=== PATIENT | female | born 1995 | race Two or more races ===

== ENCOUNTER 2020-08-05 10:10 | Inpatient (IN) | payer BC ==
[2020-08-05] MEDS: Lactated Ringers 1,000 ML IV SCH ×2 (10:45→11:33)
[2020-08-05] MEDS ORDERED: ceFAZolin 2 GM in Premix Bag 1 BAG IV ONE (10:48)
[2020-08-05] MEDS ORDERED: Citric Acid/Sodium Citrate Solution 30 ML Cup PO ONE (10:48)
[2020-08-05] MEDS ORDERED: Sodium Chloride 0.9% 10 ML SDV IV PRN (10:48)
[2020-08-05] MEDS ORDERED: Sodium Chloride 0.9% 10 ML Syringe FLUSH PRN (10:48)
[2020-08-05] MEDS ORDERED: Sodium Chloride 0.9% 2.5 ML Syringe FLUSH PRN (10:48)
[2020-08-05] MEDS ORDERED: Oxytocin/0.9 % Sodium Chloride 30 UNIT/500 ML BAG IV SCH (11:00)
[2020-08-05] MEDS ORDERED: fentaNYL 100 MCG/2 ML SDV IVPUSH PRN (11:24)
[2020-08-05] MEDS ORDERED: Acetaminophen/oxyCODONE 325-5 MG Tab PO PRN ×2 (11:24→14:01)
[2020-08-05] MEDS ORDERED: Nalbuphine 10 MG/1 ML Vial IVPUSH PRN (11:24)
--- NOTE | 2020-08-05 11:24 | PCM.PREANE ---
Preanesthetic Assessment - Anesthesia/Transfusion/Family Hx Anesthesia History: Prior Anesthesia Without Reaction Family History of Anesthesia Reaction: No Transfusion History: No Prior Transfusion(s) - Review of Systems General: No Symptoms Pulmonary: No Symptoms Cardiovascular: No Symptoms Gastrointestinal: No Symptoms Neurological: No Symptoms Other: Reports: None - Physical Assessment NPO Status Date: 08/04/20 Height: 5 ft Weight: 68.039 kg ASA Class: 2 Mental Status: Alert & Oriented x3 Airway Class: Mallampati = 2 Dentition: Reports: Normal Dentition ROM/Head Extension: Full Lungs: Clear to Auscultation, Normal Respiratory Effort Cardiovascular: Regular Rate, Regular Rhythm - Lab Values: Laboratory Last Values WBC 11.48 K/uL (4.0-11.0) H 08/04/20 16:42 RBC 3.97 M/uL (4.30-5.90) L 12 16:42 Hgb 10.9 g/dL (12.0-16.0) L 08/04/20 16:42 Hct 33.6 % (36.0-46.0) L 08/04/20 16:42 MCV 84.6 fL (80.0-98.0) 08/04/20 16:42 MCH 27.5 pg (27.0-32.0) 08/04/20 16:42 MCHC 32.4 g/dL (31.0-37.0) 08/04/20 16:42 RDW Std Deviation 40.0 fl (28.0-62.0) 08/04/20 16:42 RDW Coeff of Zane 13 % (11.0-15.0) 08/04/20 16:42 Plt Count 228 K/uL (150-400) 08/04/20 16:42 MPV 11.20 fL (7.40-12.00) 08/04/20 16:42 Nucleated RBC % 0.0 /100WBC 08/04/20 16:42 Nucleated RBCs # 0 K/uL 08/04/20 16:42 SARS-CoV-2 RNA (GARRY) NEGATIVE (NEGATIVE) 08/04/20 16:42 Blood Type A POSITIVE 08/04/20 16:42 Antibody Screen NEGATIVE 08/04/20 16:42 Crossmatch See Detail 08/04/20 16:42 - Allergies Allergies/Adverse Reactions: Allergies Allergy/AdvReac Type Severity Reaction Status Date / Time No Known Allergies Allergy Verified 08/02/20 08:20 - Blood Blood Available: Yes - Anesthesia Plan Pre-Op Medication Ordered: Antacids - Acknowledgements Anesthesia Type Planned: Spinal Pt an Appropriate Candidate for the Planned Anesthesia: Yes Alternatives and Risks of Anesthesia Discussed w Pt/Guardian: Yes Pt/Guardian Understands and Agrees with Anesthesia Plan: Yes Additional Comments: repeat elective Csection for placenta previa, no gest problems, pmh-neg, no meds other than multivits. Lasr was 8 yrs ago, Had epidural for labor, then GA for Csection. PLAN: spinal with intrathecal duramorph PreAnesthesia Questionnaire HEENT History: Reports: None Cardiovascular History: Reports: None Respiratory History: Reports: None Gastrointestinal History: Reports: Other (See Below) Other Gastrointestinal History: occasional heartburn during Genitourinary History: Reports: None CARDIAC CATH TECHNOLOGIST History: Reports: Musculoskeletal History: Reports: None Neurological History: Reports: None Psychiatric History: Reports: Anxiety Endocrine/Metabolic History: Reports: None Hematologic History: Reports: None Immunologic History: Reports: None Oncologic (Cancer) History: Reports: None Dermatologic History: Reports: None - Past Surgical History Head Surgeries/Procedures: Reports: None HEENT Surgical History: Reports: None Cardiovascular Surgical History: Reports: None Respiratory Surgical History: Reports: None GI Surgical History: Reports: None Female Surgical History: Reports: Section Endocrine Surgical History: Reports: None Neurological Surgical History: Reports: None Musculoskeletal Surgical History: Reports: None Oncologic Surgical History: Reports: None Dermatological Surgical History: Reports: None - SUBSTANCE USE Tobacco Use Status *Q: Former Tobacco User Tobacco Use Within Last Twelve Months: Cigarettes - HOME MEDS Home Medications: Home Meds Pnv No.95/Ferrous Fum/Folic AC [ Vitamin Tablet] 1 tab PO DAILY 08/02/20 [History] - CURRENT (IN HOUSE) MEDS Current Meds: Current Medications Citric Acid/Sodium Citrate (Bicitra Solution) 30 ml PO ONETIME ONE Stop: 08/05/20 10:49 Lactated Ringer's (Ringers, Lactated) 1,000 mls @ 500 mls/hr IV BOLUS BOBBY Oxytocin/Sodium Chloride (Oxytocin 30 Unit/500 Ml-Ns) 30 unit in 500 mls @ 250 mls/hr IV TITRATE BOBBY Cefazolin Sodium/Dextrose 2 gm (/ Premix) 50 mls @ 100 mls/hr IV ONETIME ONE Stop: 08/05/20 11:17 Sodium Chloride (Saline Flush) 10 ml FLUSH ASDIRECTED PRN PRN Reason: Keep Vein Open Sodium Chloride (Saline Flush) 2.5 ml FLUSH ASDIRECTED PRN PRN Reason: Keep Vein Open Sodium Chloride (Normal Saline) 10 ml IV ASDIRECTED PRN PRN Reason: IV Use
[2020-08-05] MEDS ORDERED: Octyl 2-Cyanoacrylate 1 Tube ONE (11:57)
[2020-08-05] MEDS ORDERED: Ondansetron 4 MG/2 ML SDV ONE (12:32)
[2020-08-05] MEDS ORDERED: Morphine PF 10 MG/10 ML SDV ONE (12:32)
[2020-08-05] MEDS ORDERED: Oxytocin 10 Units/1 ML SDV ONE (12:32)
[2020-08-05] MEDS ORDERED: fentaNYL 100 MCG/2 ML SDV ONE (12:32)
[2020-08-05] MEDS ORDERED: ceFAZolin/Dextrose,Iso-Osmotic 2 GM/50 ML Duplex Bag IV ONE (12:49)
--- NOTE | 2020-08-05 13:59 | PCM.OPNOTE ---
- General Post-Op/Procedure Note Date of Surgery/Procedure: 08/05/20 Operative Procedure(s): repeat low transverse Findings: complete placenta previa, liveborn male 9/9 weight 2860 grams. Normal pelvis. Pre Op Diagnosis: 36 5/7 weeks, complete placenta previa, previous Post-Op Diagnosis: Same Anesthesia Technique: Spinal Primary Surgeon: Tavia Seth Anesthesia Provider: Stephen Araujo Pathology: none Fluid Replacement, Intraop: 900 Output, Urine Amount: 400 EBL in mLs: 500 Complications: None Known Condition: Good
[2020-08-05] MEDS ORDERED: Lanolin 100% Cream 7 GM Tube TOP PRN (14:01)
[2020-08-05] MEDS ORDERED: Ondansetron 4 MG/2 ML SDV IVPUSH PRN (14:01)
[2020-08-05] MEDS ORDERED: Oxytocin 10 Units/1 ML SDV IM PRN (14:01)
[2020-08-05] MEDS ORDERED: Misoprostol 200 MCG Tab RECTAL PRN (14:01)
[2020-08-05] MEDS ORDERED: Bisacodyl 10 MG Supp RECTAL PRN (14:01)
[2020-08-05] MEDS ORDERED: Tranexamic Acid 1,000 MG in Sodium Chloride 0.9% 100 ML IV PRN (14:01)
[2020-08-05] MEDS ORDERED: diphenhydrAMINE 50 MG/ML SDV IVPUSH PRN (14:01)
[2020-08-05] MEDS ORDERED: Methylergonovine 0.2 MG/1 ML Amp IM PRN (14:01)
[2020-08-05] MEDS ORDERED: Oxytocin/Lactated Ringers 30 UNIT/500 ML BAG IV SCH (14:15)
[2020-08-05] MEDS ORDERED: Lactated Ringers 1,000 ML IV SCH (14:15)
[2020-08-05] MEDS: Ketorolac 30 MG/ML SDV IVPUSH SCH ×2 (14:27→20:46)
--- NOTE | 2020-08-05 14:32 | PCM.POSTAN ---
POST ANESTHESIA ASSESSMENT - MENTAL STATUS Mental Status: Alert, Oriented - VITAL SIGNS Vital Signs: Last Vital Signs Temp 36.4 C 08/05/20 13:31 Pulse 91 08/05/20 14:08 Resp 20 08/05/20 14:08 BP 103/51 L 08/05/20 14:08 Pulse Ox 98 08/05/20 14:08 - RESPIRATORY Respiratory Status: Respiratory Rate WNL, Airway Patent, O2 Saturation Stable - CARDIOVASCULAR CV Status: Pulse Rate WNL, Blood Pressure Stable - GASTROINTESTINAL GI Status: No Symptoms - PAIN Pain Score: 2 Free Text/Narrative:: Reports satisfactory pain control. Dermatome level regressing well, currently at L1. - POST OP HYDRATION Hydration Status: Adequate & Stable
[2020-08-05] MEDS: Docusate Sodium 100 MG Cap PO SCH (20:46)
[2020-08-06] MEDS: Ketorolac 30 MG/ML SDV IVPUSH SCH ×3 (02:45→15:21)
[2020-08-06] MEDS: Docusate Sodium 100 MG Cap PO SCH ×2 (08:57→21:17)
--- NOTE | 2020-08-06 10:05 | PCM.PNPP ---
- General Info Date of Service: 08/06/20 Functional Status: Reports: Pain Controlled, Tolerating Diet, Ambulating, Urinating - Review of Systems General: Reports: No Symptoms HEENT: Reports: No Symptoms Pulmonary: Reports: No Symptoms Cardiovascular: Reports: No Symptoms Gastrointestinal: Reports: No Symptoms Genitourinary: Reports: No Symptoms Musculoskeletal: Reports: No Symptoms Skin: Reports: No Symptoms Neurological: Reports: No Symptoms Psychiatric: Reports: No Symptoms - General Info Date of Service: 08/06/20 - Patient Data Vital Signs - Most Recent: Last Vital Signs Temp 36.5 C 08/06/20 08:45 Pulse 75 08/06/20 08:45 Resp 17 08/06/20 08:45 BP 103/65 08/06/20 08:45 Pulse Ox 96 08/06/20 08:45 Weight - Most Recent: 70.307 kg I&O - Last 24 Hours: Intake & Output 08/05/20 08/06/20 08/06/20 22:59 06:59 14:59 Output Total 850 1400 Balance -850 -1400 Lab Results - Last 24 Hours: Laboratory Results - last 24 hr 08/05/20 08/06/20 Range/Units 13:01 06:20 Hgb 8.0 L (12.0-16.0) g/dL Hct 24.8 L (36.0-46.0) % Cord ABG pH 7.314 (7.18-7.38) Cord ABG Base Excess -3 (-10--2) Cord VBG pH 7.382 (7.25-7.45) Cord VBG Base Excess -3 (-10--2) Med Orders - Current: Current Medications Bisacodyl (Dulcolax) 10 mg RECTAL ONETIME PRN PRN Reason: Constipation Diphenhydramine HCl (Benadryl) 25 mg IVPUSH Q6H PRN PRN Reason: Itching or Nausea Docusate Sodium (Colace) 100 mg PO BID BOBBY Last Admin: 08/06/20 08:57 Dose: 100 mg Documented by: Emollient Ointment (Lansinoh Hpa) 0 gm TOP ASDIRECTED PRN PRN Reason: Sore Nipples Fentanyl (Sublimaze) 50 mcg IVPUSH Q5M PRN PRN Reason: Pain (severe 7-10) Stop: 08/06/20 11:24 Lactated Ringer's (Ringers, Lactated) 1,000 mls @ 125 mls/hr IV ASDIRECTED [facility] Last Admin: 08/05/20 14:25 Dose: 125 mls/hr Documented by: Oxytocin/Lactated Ringer's (Pitocin In Lr 30 Units/500 Ml) 30 unit in 500 mls @ 999 mls/hr IV TITRATE BOBBY; Protocol Tranexamic Acid 1,000 mg/ (Sodium Chloride) 110 mls @ 660 mls/hr IV ONETIME PRN PRN Reason: Bleeding Ibuprofen (Motrin) 800 mg PO Q8H PRN PRN Reason: mild pain or fever Ketorolac Tromethamine (Toradol) 30 mg IVPUSH Q6H [facility] Stop: 08/06/20 14:16 Last Admin: 08/06/20 08:56 Dose: 30 mg Documented by: Methylergonovine Maleate (Methergine) 0.2 mg IM ONETIME PRN PRN Reason: Excessive Vaginal Bleeding Misoprostol (Cytotec) 1,000 mcg RECTAL ONETIME PRN PRN Reason: excessive bleeding Nalbuphine HCl (Nubain) 2.5 mg IVPUSH Q3H PRN PRN Reason: Pruritis Stop: 08/06/20 11:25 Ondansetron HCl (Zofran) 4 mg IVPUSH Q4H PRN PRN Reason: Nausea/Vomiting Oxycodone/Acetaminophen (Percocet 325-5 Mg) 1 tab PO ONETIME PRN PRN Reason: Pain (moderate 4-6) Oxycodone/Acetaminophen (Percocet 325-5 Mg) 1 tab PO Q4H PRN PRN Reason: Pain (moderate 4-6) Oxycodone/Acetaminophen (Percocet 325-5 Mg) 2 tab PO Q4H PRN PRN Reason: Pain (moderate 4-6) Oxytocin (Pitocin) 10 unit IM ASDIRECTED PRN PRN Reason: Excessive Vaginal Bleeding Discontinued Medications Cefazolin Sodium/Dextrose (Ancef) Confirm Administered Dose 2 gm IV .STK-MED ONE Stop: 08/05/20 12:50 Citric Acid/Sodium Citrate (Bicitra Solution) 30 ml PO ONETIME ONE Stop: 08/05/20 10:49 Fentanyl (Sublimaze) Confirm Administered Dose 100 mcg .ROUTE .STK-MED ONE Stop: 08/05/20 12:33 Lactated Ringer's (Ringers, Lactated) 1,000 mls @ 500 mls/hr IV BOLUS BOBBY Last Admin: 08/05/20 11:33 Dose: 500 mls/hr Documented by: Oxytocin/Sodium Chloride (Oxytocin 30 Unit/500 Ml-Ns) 30 unit in 500 mls @ 250 mls/hr IV TITRATE BOBBY Cefazolin Sodium/Dextrose 2 gm (/ Premix) 50 mls @ 100 mls/hr IV ONETIME ONE Stop: 08/05/20 11:17 Morphine Sulfate (Duramorph Pf) Confirm Administered Dose 10 mg .ROUTE .STK-MED ONE Stop: 08/05/20 12:33 Octyl Cyanoacrylate (Dermabond Advance) Confirm Administered Dose 1 applic .ROUTE .STK-MED ONE Stop: 08/05/20 11:58 Ondansetron HCl (Zofran) Confirm Administered Dose 4 mg .ROUTE .STK-MED ONE Stop: 08/05/20 12:33 Oxytocin (Pitocin) Confirm Administered Dose 30 unit .ROUTE .STK-MED ONE Stop: 08/05/20 12:33 Sodium Chloride (Saline Flush) 10 ml FLUSH ASDIRECTED PRN PRN Reason: Keep Vein Open Sodium Chloride (Saline Flush) 2.5 ml FLUSH ASDIRECTED PRN PRN Reason: Keep Vein Open Sodium Chloride (Normal Saline) 10 ml IV ASDIRECTED PRN PRN Reason: IV Use - Interaction Disposition, : in Room with Family Infant Interaction: Holding Infant Infant Feeding: Breastfed Infant; Nursed Well Support Person: Significant Other - Recovery Exam Fundal Tone: Firm Fundal Level: 1 Fingerbreadths Below Umbilicus Fundal Placement: Midline Lochia Amount: Scant, Small Lochia Color: Rubra/Red Perineum Description: Intact, Minimal Bruising/Swelling Episiotomy/Laceration: None Bladder Status: Voiding Urinary Elimination: Voided - Exam General: Alert, Oriented Lungs: Normal Respiratory Effort GI/Abdominal Exam: Soft, Non-Tender, No Distention Extremities: Non-Tender, No Pedal Edema Skin: Warm, Dry, Intact Wound/Incisions: Dressing Dry and Intact - Problem List Review Problem List Initiated/Reviewed/Updated: Yes - My Orders Last 24 Hours: My Active Orders 08/05/20 14:01 Patient Status [ADT] Routine Ambulate [RC] PER UNIT ROUTINE Communication Order [RC] PER UNIT ROUTINE Communication Order [RC] Per Unit Routine May Shower [RC] ASDIRECTED Notify Provider Vital Signs [RC] ASDIRECTED RT Incentive Spirometry [RC] Q2HWA Acetaminophen/oxyCODONE [Percocet 325-5 MG] 1 tab PO Q4H PRN Acetaminophen/oxyCODONE [Percocet 325-5 MG] 2 tab PO Q4H PRN Lanolin [Lansinoh HPA] See Dose Instructions TOP ASDIRECTED PRN Methylergonovine [Methergine] 0.2 mg IM ONETIME PRN Ondansetron [Zofran] 4 mg IVPUSH Q4H PRN Oxytocin [Pitocin] 10 unit IM ASDIRECTED PRN Tranexamic Acid [Cyklokapron] 1,000 mg Sodium Chloride 0.9% [Normal Saline] 100 ml IV ONETIME bisacodyL [Dulcolax] 10 mg RECTAL ONETIME PRN diphenhydrAMINE [Benadryl] 25 mg IVPUSH Q6H PRN miSOPROStoL [Cytotec] 1,000 mcg RECTAL ONETIME PRN Abdominal Binder [OM.PC] Urgent Assess Lochia [WOMSER] Per Unit Routine Assess Uterine Involution [WOMSER] Per Unit Routine Breast Pump [WOMSER] Per Unit Routine Sequential Compression Device [OM.PC] Per Unit Routine Resuscitation Status Routine 08/05/20 14:02 Peripheral IV Discontinue [OM.PC] Routine 08/05/20 14:03 Antiembolic Devices [RC] PER UNIT ROUTINE 08/05/20 14:05 Notify Provider Intake and Out [RC] ASDIRECTED 08/05/20 14:15 Ketorolac [Toradol] 30 mg IVPUSH Q6H Lactated Ringers [Ringers, Lactated] 1,000 ml IV ASDIRECTED Oxytocin/Lactated Ringers [Pitocin in LR 30 Units/500 ML] 30 unit in 500 ml IV TITRATE 08/05/20 Dinner Regular Diet [DIET] 08/05/20 21:00 Docusate Sodium [Colace] 100 mg PO BID 08/06/20 20:16 Ibuprofen [Motrin] 800 mg PO Q8H PRN - Assessment Assessment:: POD#1 after repeat low transvserse due to complete placenta previa. Pain is well controlled, and she is well. She was anemic on admission and had appropriate drop in Hgb, continue with with 27 mg iron on discharge. Continue postop care at this time. Anticipate discharge in am. - Plan Plan:: Continue postoperative care, dressing off, IV out, shower and ambulate.
--- NOTE | 2020-08-06 12:10 | PCM48HPAN ---
Post Anesthesia Note - EVALUATION WITHIN 48HRS OF ANESTHETIC Vital Signs in Normal Range: Yes Patient Participated in Evaluation: Yes Respiratory Function Stable: Yes Airway Patent: Yes Cardiovascular Function Stable: Yes Hydration Status Stable: Yes (Taking PO well) Pain Control Satisfactory: Yes (Denies pain) Nausea and Vomiting Control Satisfactory: Yes Mental Status Recovered: Yes Vital Signs: Last Vital Signs Temp 36.5 C 08/06/20 08:45 Pulse 101 H 08/06/20 11:00 Resp 19 08/06/20 11:00 BP 103/65 08/06/20 08:45 Pulse Ox 94 L 08/06/20 11:00 - COMMENTS/OBSERVATIONS Free Text/Narrative:: Ambulating without difficulty, full return of strength and sensation to BLE.
[2020-08-06] MEDS ORDERED: Ibuprofen 800 MG Tab PO PRN (20:16)
[2020-08-06] MEDS: Acetaminophen/oxyCODONE 325-5 MG Tab PO PRN (21:18)
[2020-08-07] MEDS: Docusate Sodium 100 MG Cap PO SCH (09:03)
[2020-08-07] MEDS: Acetaminophen/oxyCODONE 325-5 MG Tab PO PRN ×2 (09:04→15:30)
--- NOTE | 2020-08-07 13:11 | PCM.PNPP ---
- General Info Date of Service: 08/07/20 Functional Status: Reports: Pain Controlled (take oral pain medications.), Tolerating Diet, Ambulating, Urinating - Review of Systems General: Reports: No Symptoms HEENT: Reports: No Symptoms Pulmonary: Reports: No Symptoms Cardiovascular: Reports: No Symptoms Gastrointestinal: Reports: No Symptoms Genitourinary: Reports: No Symptoms Musculoskeletal: Reports: No Symptoms Skin: Reports: No Symptoms Neurological: Reports: No Symptoms Psychiatric: Reports: No Symptoms - Patient Data Vital Signs - Most Recent: Last Vital Signs Temp 36.2 C 08/07/20 12:03 Pulse 82 08/07/20 12:03 Resp 16 08/07/20 12:03 BP 110/67 08/07/20 12:03 Pulse Ox 98 08/07/20 12:03 Weight - Most Recent: 70.307 kg Med Orders - Current: Current Medications Bisacodyl (Dulcolax) 10 mg RECTAL ONETIME PRN PRN Reason: Constipation Diphenhydramine HCl (Benadryl) 25 mg IVPUSH Q6H PRN PRN Reason: Itching or Nausea Docusate Sodium (Colace) 100 mg PO BID [facility] Last Admin: 08/07/20 09:03 Dose: 100 mg Documented by: Emollient Ointment (Lansinoh Hpa) 0 gm TOP ASDIRECTED PRN PRN Reason: Sore Nipples Lactated Ringer's (Ringers, Lactated) 1,000 mls @ 125 mls/hr IV ASDIRECTED [facility] Last Admin: 08/05/20 14:25 Dose: 125 mls/hr Documented by: Oxytocin/Lactated Ringer's (Pitocin In Lr 30 Units/500 Ml) 30 unit in 500 mls @ 999 mls/hr IV TITRATE [facility]; Protocol Tranexamic Acid 1,000 mg/ (Sodium Chloride) 110 mls @ 660 mls/hr IV ONETIME PRN PRN Reason: Bleeding Ibuprofen (Motrin) 800 mg PO Q8H PRN PRN Reason: mild pain or fever Last Admin: 08/07/20 09:03 Dose: 800 mg Documented by: Methylergonovine Maleate (Methergine) 0.2 mg IM ONETIME PRN PRN Reason: Excessive Vaginal Bleeding Misoprostol (Cytotec) 1,000 mcg RECTAL ONETIME PRN PRN Reason: excessive bleeding Ondansetron HCl (Zofran) 4 mg IVPUSH Q4H PRN PRN Reason: Nausea/Vomiting Oxycodone/Acetaminophen (Percocet 325-5 Mg) 1 tab PO ONETIME PRN PRN Reason: Pain (moderate 4-6) Last Admin: 08/07/20 03:26 Dose: 1 tab Documented by: Oxycodone/Acetaminophen (Percocet 325-5 Mg) 1 tab PO Q4H PRN PRN Reason: Pain (moderate 4-6) Last Admin: 08/07/20 09:04 Dose: 1 tab Documented by: Oxycodone/Acetaminophen (Percocet 325-5 Mg) 2 tab PO Q4H PRN PRN Reason: Pain (moderate 4-6) Oxytocin (Pitocin) 10 unit IM ASDIRECTED PRN PRN Reason: Excessive Vaginal Bleeding Discontinued Medications Cefazolin Sodium/Dextrose (Ancef) Confirm Administered Dose 2 gm IV .STK-MED ONE Stop: 08/05/20 12:50 Citric Acid/Sodium Citrate (Bicitra Solution) 30 ml PO ONETIME ONE Stop: 08/05/20 10:49 Fentanyl (Sublimaze) 50 mcg IVPUSH Q5M PRN PRN Reason: Pain (severe 7-10) Stop: 08/06/20 11:24 Fentanyl (Sublimaze) Confirm Administered Dose 100 mcg .ROUTE .STK-MED ONE Stop: 08/05/20 12:33 Lactated Ringer's (Ringers, Lactated) 1,000 mls @ 500 mls/hr IV BOLUS [facility] Last Admin: 08/05/20 11:33 Dose: 500 mls/hr Documented by: Oxytocin/Sodium Chloride (Oxytocin 30 Unit/500 Ml-Ns) 30 unit in 500 mls @ 250 mls/hr IV TITRATE BOBBY Cefazolin Sodium/Dextrose 2 gm (/ Premix) 50 mls @ 100 mls/hr IV ONETIME ONE Stop: 08/05/20 11:17 Ketorolac Tromethamine (Toradol) 30 mg IVPUSH Q6H [facility] Stop: 08/06/20 14:16 Last Admin: 08/06/20 15:21 Dose: 30 mg Documented by: Morphine Sulfate (Duramorph Pf) Confirm Administered Dose 10 mg .ROUTE .STK-MED ONE Stop: 08/05/20 12:33 Nalbuphine HCl (Nubain) 2.5 mg IVPUSH Q3H PRN PRN Reason: Pruritis Stop: 08/06/20 11:25 Octyl Cyanoacrylate (Dermabond Advance) Confirm Administered Dose 1 applic .ROUTE .STK-MED ONE Stop: 08/05/20 11:58 Last Admin: 08/06/20 10:09 Dose: Not Given Documented by: Ondansetron HCl (Zofran) Confirm Administered Dose 4 mg .ROUTE .STK-MED ONE Stop: 08/05/20 12:33 Oxytocin (Pitocin) Confirm Administered Dose 30 unit .ROUTE .STK-MED ONE Stop: 08/05/20 12:33 Sodium Chloride (Saline Flush) 10 ml FLUSH ASDIRECTED PRN PRN Reason: Keep Vein Open Sodium Chloride (Saline Flush) 2.5 ml FLUSH ASDIRECTED PRN PRN Reason: Keep Vein Open Sodium Chloride (Normal Saline) 10 ml IV ASDIRECTED PRN PRN Reason: IV Use - Interaction Disposition, : in Room with Family Interaction: Holding Infant Feeding: Breastfed ; Nursed Well Support Person: Significant Other - Recovery Exam Fundal Tone: Firm Fundal Level: 1 Fingerbreadths Below Umbilicus Fundal Placement: Midline Lochia Amount: Scant Lochia Color: Rubra/Red Perineum Description: Intact, Minimal Bruising/Swelling Episiotomy/Laceration: None Bladder Status: Voiding Urinary Elimination: Voided - Exam General: Alert, Oriented Neck: Supple Lungs: Clear to Auscultation, Normal Respiratory Effort Cardiovascular: Regular Rate, Regular Rhythm GI/Abdominal Exam: Normal Bowel Sounds, Soft, Non-Tender, No Distention Extremities: Normal Inspection, Non-Tender, No Pedal Edema Skin: Warm, Dry, Intact Wound/Incisions: Healing Well Neurological: No New Focal Deficit - Problem List & Annotations (1) Complete placenta previa nos or without hemorrhage, third trimester SNOMED Code(s): 5402024, 73286133 Code(s): O44.03 - COMPLETE PLACENTA PREVIA NOS OR WITHOUT HEMOR, THIRD TRI Status: Acute Current Visit: Yes (2) delivery due to maternal disorder, delivered, curr hospitaliz SNOMED Code(s): 356364436 Code(s): O99.892 - OTH DISEASES AND CONDITIONS COMPLICATING CHILDBIRTH Status: Acute Current Visit: Yes (3) Previous delivery affecting , delivered SNOMED Code(s): 111501026, 417374409 Code(s): O34.219 - MATERNAL CARE FOR UNSP TYPE SCAR FROM PREVIOUS DEL Status: Acute Current Visit: Yes - Problem List Review Problem List Initiated/Reviewed/Updated: Yes - My Orders Last 24 Hours: My Active Orders 08/06/20 20:16 Ibuprofen [Motrin] 800 mg PO Q8H PRN 08/07/20 13:09 Ready for Discharge [RC] PER UNIT ROUTINE - Assessment Assessment:: POD#2 after repeat low transvserse due to complete placenta previa. Stable, would like to be discharged to day - Plan Plan:: Discharge instructions reviewed, including continue with iron for at least a month.
--- NOTE | 2020-08-08 07:01 | OR ---
SURGEON: Tavia Seth M.D. DATE OF PROCEDURE: 08/05/2020 PREOPERATIVE DIAGNOSES: A 36-5/7 weeks' gestation, complete placenta previa, previous section. POSTOPERATIVE DIAGNOSES: A 36-5/7 weeks' gestation, complete placenta previa, previous section. PROCEDURE: Repeat low transverse section. PRIMARY SURGEON: Tavia Seth MD ANESTHESIA: Spinal. ESTIMATED BLOOD LOSS: 500 mL. FLUIDS: 900 mL of crystalloid. 400 mL. FINDINGS: Liveborn male, score of 9 and 9, weighing 2860 g. Complete previa was noted. Otherwise, normal-appearing uterus, tubes, and ovaries. COMPLICATIONS: None known. DISPOSITION: Stable to recovery. BRIEF HISTORY: This is a 24-year-old female, G2, P 1-0-0-1. She presents at 36-5/7 weeks' gestation with a known complete posterior placenta previa, having received 2 doses of steroids the last 24 hours prior to this procedure. She is group B strep positive. She presents for early delivery due to complete previa. She has had otherwise uncomplicated care. Risks have been discussed including bleeding; infection; injury to bowel, bladder, blood vessels, ureters, or other organs; risk of thromboembolic event; and risk of anesthesia. Understanding all these risks, she does desire to proceed. Four units of blood have been typed and crossed prior to the procedure. DESCRIPTION OF PROCEDURE: With the patient in the left tilt position, under adequate spinal analgesia, the abdomen was prepped with chlorhexidine and draped in usual fashion for abdominal surgery. SCDs were in place. Ramirez catheter had been placed and an appropriate time-out was held. She had received 2 g of Ancef IV. After documentation of adequate analgesia, the prior cicatrix was excised and an incision was carried through the subcutaneous tissue to the fascia, which was scored transversely in the midline. The fascial incision was extended laterally using curved Norman scissors and elevated from the underlying rectus muscle using sharp and blunt dissection. The rectus muscles were bluntly in the midline. A finger was used to enter the peritoneal cavity. There were no adhesions anteriorly. The incision was extended using the Norman scissors. The Dirk O retractor was placed. The visceral peritoneum over the lower uterine segment was incised to develop an adequate bladder flap. A transverse curvilinear incision was made over the lower uterine segment with a scalpel. A finger was used to enter the amniotic cavity. This was just above and medial to the complete placenta previa. The incision was extended. The placenta was apparent within the incision, but I was able to deliver the head just medial to the posterior right-sided complete previa, and the was bulb suctioned by nose and mouth. After 1 minute, the cord was doubly clamped and cut. The was handed to the nurse in attendance at delivery. The was a liveborn male, score 9 and 9, weighing 2860 g. Cord blood was collected for cord ABGs as well as routine cord blood sampling. The placenta was removed by manual extraction and the uterus was cleaned with a dry laparotomy tape. The cervix was opened with ring forceps. The uterine incision was closed with a running lock suture of 0 Polysorb followed by an imbricating layer of 0 Polysorb. A single [id number] suture was placed in the midline for complete hemostasis. Both tubes and ovaries were inspected and appeared normal. The Dirk O C- section retractor was removed and final inspection revealed the uterine incision to be completely hemostatic. The rectus muscle and peritoneum were loosely approximated in the midline using a running mattress suture of 0 Polysorb. The posterior aspect of the fascia was inspected, any areas of bleeding that were noted were cauterized. The fascial incision was closed with a running suture of 0 Polysorb. Subcutaneous tissue was irrigated and carefully inspected for hemostasis, any areas of bleeding that were noted were cauterized. The skin was closed with a running subcuticular suture of 3-0 Monocryl followed by Dermabond. Final sponge, needle, and instrument counts were reported as correct. There were no known complications. Mother and baby are in LDR in good condition. AYE / CHARMAINE /[id number]
== END 2020-08-07 19:00 | disposition home or self-care (01) | DRG 540 ==
LOC: MW.OB 10:10
PROVIDERS: ADMIT Obstetrics & Gynecology; ATTEND Obstetrics & Gynecology
PROC: 10D00Z1 Extraction of Products of Conception, Low, Open Approach (ICD-10-PCS; principal; 2020-08-05)
DX: O44.03 Complete placenta previa NOS or without hemorrhage, third trimester (principal); O34.211 Maternal care for low transverse scar from previous cesarean delivery; Z37.0 Single live birth; Z20.828 Contact with and (suspected) exposure to other viral communicable diseases; Z3A.36 36 weeks gestation of pregnancy
CPT/HCPCS: 01961; 36415; 59025; 82803; 85014; 85018; 85027; 86850; 86900; 86901; 86920; 86921; 86922; A9270-GY; J0690; J1885; J2270; J2405; J2590; J3010; J7120; U0002

== ENCOUNTER 2024-08-02 18:08 | Emergency (ER) | payer SELFPAY ==
[2024-08-02] MEDS: Sodium Chloride 0.9% 1,000 ML IV STA (19:14)
[2024-08-02] MEDS: Meclizine 25 MG Tab PO STA (19:15)
[2024-08-02 19:32] LABS: BASOPHILS ABSOLUTE AUTO 0.06 K/uL (0.00-0.20); BASOPHILS PERCENT AUTO 0.6 % (0.0-1.0); EOSINOPHILS ABSOLUTE AUTO 0.02 K/uL (0.00-0.45); EOSINOPHILS PERCENT AUTO 0.2 % (0.0-6.0); HEMOGLOBIN 14.5 g/dL (12.0-16.0); IMMATURE GRAN ABSOLUTE AUTO 0.02 K/uL (0.00-0.05); IMMATURE GRAN PERCENT AUTO 0.2 % (0.0-0.4); LYMPHOCYTES ABSOLUTE AUTO 1.11 K/uL (1.00-4.80); LYMPHOCYTES PERCENT AUTO 11.7 % (24.0-44.0); MEAN CORPUSCULAR HEMOGLOBIN 29.3 pg (28.0-32.0); MEAN CORPUSCULAR HGB CONC 34.5 g/dL (32.0-36.0); MEAN CORPUSCULAR VOLUME 84.8 fL (83.0-99.0); MEAN PLATELET VOLUME 10.7 fL (9.4-12.3); MONOCYTES ABSOLUTE AUTO 0.42 K/uL (0.00-0.80); MONOCYTES PERCENT AUTO 4.4 % (0.0-8.0); NEUTROPHILS ABSOLUTE AUTO 7.89 K/uL (1.80-7.70); NEUTROPHILS PERCENT AUTO 82.9 % (41.0-71.0); PLATELET COUNT,PLT 312 K/uL (150-400); RED BLOOD CELL COUNT 4.95 M/uL (4.10-5.30); WHITE BLOOD CELL COUNT,WBC 9.52 K/uL (3.9-11.3)
[2024-08-02 19:59] LABS: A/G RATIO 1.3 (0.9-1.6); ALANINE AMINOTRANSFERASE,ALT 12 IU/L (14-63); ALBUMIN 4.9 g/dL (3.4-5.0); ALKALINE PHOSPHATASE 53 U/L (46-116); ASPARTATE AMNIOTRANSFERASE,AST 15 IU/L (15-37); BILIRUBIN TOTAL 0.7 mg/dL (0.2-1.0); BLOOD UREA NITROGEN,BUN 7 mg/dL (7.0-18.0); CALCIUM 9.5 mg/dL (8.5-10.1); CARBON DIOXIDE,CO2 26.9 mmol/L (21.0-32.0); CHLORIDE,CL 104 mmol/L (98-107); CREATININE 0.7 mg/dL (0.6-1.0); GLUCOSE RANDOM 98 mg/dL (74-106); MAGNESIUM 2.2 mg/dL (1.8-2.4); POTASSIUM,K 3.7 mmol/L (3.5-5.1); PROTEIN TOTAL,TP 8.7 g/dL (6.4-8.2); SODIUM,NA 140 mmol/L (136-145)
[2024-08-02 20:04] LABS: ESTIMATED GFR 121 mL/min (>60)
== END 2024-08-02 20:53 | disposition home or self-care (01) ==
LOC: MW.ED 18:08
DX: R42 Dizziness and giddiness (principal); Z75.8 Other problems related to medical facilities and other health care
CPT/HCPCS: 36415; 80053; 83735; 84703; 85025; 87428; 96360; 99284; A9270; J7030